=== PATIENT | female | born 1970 | race Caucasian/White ===

== ENCOUNTER 2022-11-25 14:08 | Emergency (ER) | payer OTHER, SELFPAY ==
--- NOTE | ~2022-11-25 | CT_ITS ---
EXAMINATION: CT HEAD AND FACIAL BONES WITHOUT CONTRAST CLINICAL INFORMATION: Pain COMPARISON: CT head from 07/21/2007 TECHNIQUE: Contiguous axial imaging was performed from the skull base to vertex without intravenous administration of contrast. This CT examination was performed using dose optimization techniques as appropriate, variously including the following: *Automated exposure control *Adjustment of mA and/or kV according to patient size (this includes techniques or standardized protocols for targeted exams where dose is matched to indication/reason for exam; i.e. extremities or head) *Use of iterative reconstruction technique DLP: 1019 mGy-cm FINDINGS: There is no evidence of acute intracranial hemorrhage or territorial infarction. No abnormal mass effect or midline shift is seen. Meza to white matter differentiation is well preserved. No extra-axial fluid collections are identified. The ventricles are normal in size. There is no abnormal attenuation within the brain parenchyma. The osseous structures and soft tissues are normal. The mastoid air cells and visualized portions of the paranasal sinuses are well aerated. CT/CT head/brain wo IV con IMPRESSION: 1. No acute intracranial pathology. 2. No acute visible fracture or dislocation.
--- NOTE | ~2022-11-25 | CT_ITS ---
EXAMINATION: CT HEAD AND FACIAL BONES WITHOUT CONTRAST CLINICAL INFORMATION: Pain COMPARISON: CT head from 07/21/2007 TECHNIQUE: Contiguous axial imaging was performed from the skull base to vertex without intravenous administration of contrast. This CT examination was performed using dose optimization techniques as appropriate, variously including the following: *Automated exposure control *Adjustment of mA and/or kV according to patient size (this includes techniques or standardized protocols for targeted exams where dose is matched to indication/reason for exam; i.e. extremities or head) *Use of iterative reconstruction technique DLP: 1019 mGy-cm FINDINGS: There is no evidence of acute intracranial hemorrhage or territorial infarction. No abnormal mass effect or midline shift is seen. Meza to white matter differentiation is well preserved. No extra-axial fluid collections are identified. The ventricles are normal in size. There is no abnormal attenuation within the brain parenchyma. The osseous structures and soft tissues are normal. The mastoid air cells and visualized portions of the paranasal sinuses are well aerated. CT/CT facial bones wo IV con IMPRESSION: 1. No acute intracranial pathology. 2. No acute visible fracture or dislocation.
[2022-11-25 14:12] VITALS: BP 190/118; PULSE 85; RESP 18; TEMP 36.7; O2SAT 99; BMI 31.0
--- NOTE | 2022-11-25 14:13 | ED_ITS ---
HPI - General Adult General Chief complaint: Fall Stated complaint: fall / tooth broke through skin Time Seen by Provider: 11/25/22 14:52 Source: patient Mode of arrival: ambulatory Limitations: no limitations History of Present Illness HPI narrative: 52 year old female with history of hypertension, thyroid cancer, among others, presents to ER after fall that happened around 12:00 today, 11/25. Reports she was bringing in groceries when she tripped and fell and hit her face against the pavement. States that her two superior frontal incisors penetrated into bottom lip during fall, but she did not break skin on the outer side of the lip. Denies loss of consciousness. Reports pain in her lips and numbness to abrasion involving skin above upper lip and tip of nose. Reports pain in her jaw when opening her mouth. Reports she took 2 tablets of ibuprofen before arriving to the hospital. Reported headache and blurry vision that resolved and denies any confusion or dizziness. Denies nausea, vomiting, epistaxis. MD complaint: facial trauma s/p fall Onset (ago): hour(s) Location: face Radiation: non-radiation Severity: moderate Quality: aching Pain Consistency: other (improving) Relieving factors: none Exacerbating factors: none Associated symptoms: denies other symptoms Treatments prior to arrival: NSAID Related Data Allergies Allergy/AdvReac Type Severity Reaction Status Date / Time No Known Allergies Allergy Verified 11/25/22 14:17 Review of Systems Review of Systems: Yes all other systems are reviewed and are negative [facility] Social History Social History Advance Directives: No Physical Exam ED Vital Signs: Vital Signs - 24 hr 11/25/22 14:12 11/25/22 16:00 11/25/22 17:48 Temperature 98.1 F 96.8 F Pulse Rate 85 68 57 Respiratory Rate 18 18 Blood Pressure 190/118 H 191/103 H 212/110 H Pulse Oximetry 99 98 Oxygen Delivery Method Room Air Room Air BMI result Body Mass Index 31.0 Const General: cooperative, comfortable and no acute distress Orientation/consciousness: patient oriented x3 HENMT Head: Yes normal to inspection, Yes normocephalic and No Vernon's sign Ears: hearing grossly normal bilaterally, external ears normal and TM's normal bilaterally General nose exam: Normal external nose present, Normal nares present, No nasal discharge present and no epistaxis Face and sinus: Yes abrasion (Superficial abrasion to philtrum, bleeding controlled. ) and Yes erythema Mouth: tongue normal, lip abnormal and mouth trauma (5 mm laceration along mucosa of inferior lip. Superior incisors chipped.) Neuro General: patient oriented x3 Course Course Course Narrative: This is an RME: Additional HPI, ROS, PE not included below will be deferred to primary provider. This is a [id number]-female presenting to the emergency department after mechanical fall. Patient reports that she tripped and fell directly on her face. Early tooth lacerated the in her bottom lip. She does have tenderness palpation along maxilla. Endorsing headache. No loss of consciousness. She is not on blood thinners Plan: CT head, CT facial bones Medications Administered Discontinued Medications Generic Name Dose Route Start Last Admin Trade Name Naresh PRN Reason Stop Dose Admin Bacitracin 1 appl 11/25/22 15:21 11/25/22 16:20 Bacitracin Oint 0.9 Gm Packet TOPICAL 11/25/22 15:22 1 appl ONCE ONE Administration Protocol Lidocaine HCl 2 ml 11/25/22 15:59 11/25/22 17:05 Lidocaine Hcl 1 % 20 Ml Vial INFILTRATI 11/25/22 16:00 2 ml ONCE ONE Administration Lisinopril 10 mg 11/25/22 16:40 11/25/22 17:11 Lisinopril 10 Mg Tablet PO 11/25/22 16:41 10 mg ONCE ONE Administration Protocol Procedures Laceration Laceration 2: Site: lip Size (cm): 1 Description: linear Depth: simple, single layer Local Anesthetic: lidocaine 1% Amount of anesthesia used (mL): 0.5 Pre-repair: wound explored and deep structures intact Skin layer closed with: other (absorbable) Size (cm): 5-0 Number of sutures: 2 Medical Decision Making Medical Decision Making MDM Narrative: 52 year old female with history of hypertension, thyroid cancer, among others, who presents to ER after fall today where she sustained abrasions to face. CT of head and CT of facial bones were within normal limits. Physical exam reveals laceration in inferior inner lip that is deep, involving subcutaneous fat. Bleeding is controlled. Used 0.5 mL xylocaine and 2 absorbable Vicryl sutures to close wound to inner lip. Advised patient that this area of the body heals quickly, and to avoid sharp textured food while the laceration resolves. patient very hypertensive on arrival to the ER. She did not take her lisinopril yet today. She has no chest pain or dizziness. She was given her lisinopril with small improvement in her blood pressure. She would like to be discharged home. She will follow-up with her primary care doctor. Low suspicion for hypertensive emergency at this time. comfortable w/ discharge home. Differential Diagnosis Differential Diagnoses: The differential diagnosis associated with the presentation includes Lip laceration, TMJ dislocation, maxilla fracture, mandibular fracture, concussion. Admission/Observation Consideration of admission/observation: Escalation of care including admission/observation considered facial trauma considered further monitoring/obs Independent Interpretation I performed an independent interpretation of an: CT Scan Interpretation: I have reviewed the patient's CT scans and agree with the radiologist's readings. no acute fx or brain edema or bleed Radiology Impression Discussion of test interpretation with radiology: I have reviewed the radiologist's reading. Radiologist Impression: EXAMINATION: CT HEAD AND FACIAL BONES WITHOUT CONTRAST CLINICAL INFORMATION: Pain? COMPARISON: CT head from 07/21/2007 TECHNIQUE: Contiguous axial imaging was performed from the skull base to vertex without intravenous administration of contrast. This CT examination was performed using dose optimization techniques as appropriate, variously including the following: *Automated exposure control *Adjustment of mA and/or kV according to patient size (this includes techniques or standardized protocols for targeted exams where dose is matched to indication/reason for exam; i.e. extremities or head) *Use of iterative reconstruction technique DLP: 1019 mGy-cm FINDINGS: There is no evidence of acute intracranial hemorrhage or territorial infarction. No abnormal mass effect or midline shift is seen. Meza to white matter differentiation is well preserved. No extra-axial fluid collections are identified. The ventricles are normal in size. There is no abnormal attenuation within the brain parenchyma. The osseous structures and soft tissues are normal. The mastoid air cells and visualized portions of the paranasal sinuses are well aerated. ? CT/CT head/brain wo IV con IMPRESSION: 1.? No acute intracranial pathology. 2.? No acute visible fracture or dislocation. EXAMINATION: CT HEAD AND FACIAL BONES WITHOUT CONTRAST CLINICAL INFORMATION: Pain? COMPARISON: CT head from 07/21/2007 TECHNIQUE: Contiguous axial imaging was performed from the skull base to vertex without intravenous administration of contrast. This CT examination was performed using dose optimization techniques as appropriate, variously including the following: *Automated exposure control *Adjustment of mA and/or kV according to patient size (this includes techniques or standardized protocols for targeted exams where dose is matched to indication/reason for exam; i.e. extremities or head) *Use of iterative reconstruction technique DLP: 1019 mGy-cm FINDINGS: There is no evidence of acute intracranial hemorrhage or territorial infarction. No abnormal mass effect or midline shift is seen. Meza to white matter differentiation is well preserved. No extra-axial fluid collections are identified. The ventricles are normal in size. There is no abnormal attenuation within the brain parenchyma. The osseous structures and soft tissues are normal. The mastoid air cells and visualized portions of the paranasal sinuses are well aerated. ? CT/CT facial bones wo IV con IMPRESSION: 1.? No acute intracranial pathology. 2.? No acute visible fracture or dislocation. Prescription Management I considered prescription management with: Pain Medication Chronic Conditions Patient?s care impacted by: Hypertension Discharge Plan Discharge Clinical Impression: Laceration of lip, Superficial abrasion Patient Disposition: Home, Self-Care Instructions: Facial Laceration (ED) Additional Instructions: Your CT scans were normal. 2 absorbable sutures were used to close the wound on your bottom lip. They will absorb on their own, no need to come back to get them out. Avoid foods that are sharp and rinse your mouth after your eat Use warm salt water washes 2-3 times per day Use bacitrcain or neosporin to the abrasion on your upper lip Apply ice several times per day to help with pain and swelling. Follow up with your doctor as needed If you develop new or worsening symptoms call 911 or come back to the ER for further evaluation.
[2022-11-25 16:00] VITALS: BP 191/103; PULSE 68; RESP 18; TEMP 36
[2022-11-25] MEDS: Bacitracin Oint 0.9 GM PACKET 1 APPL TOPICAL (16:20)
[2022-11-25] MEDS: Lidocaine HCl 1 % 20 ML VIAL INFILTRATI (17:05)
[2022-11-25] MEDS: lisinopriL 10 MG TABLET PO (17:11)
[2022-11-25 17:48] VITALS: BP 212/110; PULSE 57; O2SAT 98
[2022-11-25 17:55] VITALS: BP 180/85
--- NOTE | 2022-11-25 17:56 | PC.NURSE ---
blood pressure rechecked manually 180/105, lisinopril 10 mg administered previously . Pt stated that she takes lisinopril but didn't take at home today
== END 2022-11-25 18:01 | disposition home or self-care (01) ==
PROVIDERS: Emergency Provider Emergency Medicine
DX: S01.511A Laceration without foreign body of lip, initial encounter (principal); K03.81 Cracked tooth; R51.9 Headache, unspecified; X58.XXXA Exposure to other specified factors, initial encounter; Y93.9 Activity, unspecified; Y92.9 Unspecified place or not applicable; Y99.9 Unspecified external cause status
CPT/HCPCS: 12011; 70450; 70486; 99283; 99284

== ENCOUNTER 2023-01-24 14:12 | Emergency (ER) | payer OTHER, SELFPAY ==
--- NOTE | 2023-01-24 14:15 | ED.GENADULT ---
HPI - General Adult General Chief complaint: ETOH/Substance Use Stated complaint: SUBSTANCE ABUSE Time Seen by Provider: 01/24/23 14:15 Source: patient and EMS Mode of arrival: EMS Limitations: no limitations History of Present Illness HPI narrative: Patient is a 52 year old assigned female at with a history of crack cocaine use (10 years sober) presenting to the emergency department today with hallucination after breaking her 10 year sobriety and using $1,000 worth of crack cocaine over the last 3 days. Patient states that she has been stressed out lately and unfortunately, that lead her to buying $1,000 of crack cocaine and binging over the last 3 days. Patient denies any dizziness, lightheadedness, abdominal pain, nausea, vomiting, fever, chills, blurry vision, double vision, loss of vision, chest pain, difficulty breathing, shortness of breath, back pain, night sweats, pain with urination, increased urinary frequency, increased urinary urgency, blood in her urine or stool, syncope or a near syncopal episode, recent trauma or falls, bowel incontinence, bladder incontinence, bowel retention, bladder retention, or any other complaints at this time. Onset (ago): day(s) Relieving factors: none Exacerbating factors: none Associated symptoms: denies other symptoms Treatments prior to arrival: none Related Data Previous Rx's Medication Instructions Recorded cefuroxime axetil 250 mg tablet 250 mg PO BID 7 days #14 tabs 01/24/23 Allergies Allergy/AdvReac Type Severity Reaction Status Date / Time No Known Allergies Allergy Verified 11/25/22 14:17 Review of Systems Constitutional: Constitutional: Reports no additional constitutional complaints, Denies chills, Denies fever(s) and Denies night sweats Eyes: Eyes: Reports no additional eye complaints, Denies blurry vision, Denies change in vision, Denies diplopia, Denies eye discharge, Denies loss of vision and Denies eye pain ENT: Denies dizziness Cardiovascular: Cardiovascular: Reports no additional cardiovascular complaints, Denies chest pain, Denies lightheadedness, Denies Loss of Consciousness and Denies dyspnea Respiratory: Respiratory: Reports no additional respiratory complaints and Denies dyspnea Gastrointestinal: Gastrointestinal: Reports no additional gastrointestinal complaints, Denies abdominal pain, Denies melena, Denies hematochezia, Denies change in bowel habits and Denies change in stool character Genitourinary: Genitourinary: Denies hematuria, Denies urinary frequency, Denies dysuria, Denies urinary incontinence, Denies urinary hesitancy and Denies urinary urgency Musculoskeletal: Musculoskeletal: Reports no additional musculoskeletal complaints, Denies numbness and Denies tingling Neurologic: Denies dizziness, Denies loss of vision, Denies numbness and Denies tingling Psychiatric: Psychiatric: Reports auditory hallucinations, Reports visual hallucinations and Reports hallucinations Endocrine: Endocrine: Reports no additional endocrine complaints Hematologic/Lymphatic: Hematologic/Lymphatic: Reports no additional hematologic/lymphatic complaints Allergic/Immunologic: Allergic/Immunologic: Reports no additional allergic/immunologic complaints [facility] Past Medical History Attestation statement: The following information was validated with the patient. Source: old records reviewed and nursing notes reviewed Social History Social History Advance Directives: No Advance Directives Information Provided: Yes Physical Exam ED Vital Signs: Vital Signs - 24 hr 01/24/23 14:20 01/24/23 15:22 Temperature 98 F 97.6 F Pulse Rate 106 H 72 Respiratory Rate 18 16 Blood Pressure 149/88 H 142/82 H Pulse Oximetry 96 98 Oxygen Delivery Method Room Air Room Air BMI result Body Mass Index 32.9 Const General: cooperative, no acute distress, alert and awake Nutritional Appearance: well nourished Orientation/consciousness: patient oriented x3 Limitations: no limitations HENMT Head: Yes normal to inspection and Yes atraumatic Ears: hearing grossly normal bilaterally and external ears normal General nose exam: Normal external nose present, no nasal discharge noted and no epistaxis Face and sinus: Yes normal facial exam, No abrasion and No laceration Mouth: Normal oral and palatal mucosa present, no drooling and no muffled voice Eyes General: appearance normal, both eyes and all related structures Periorbital: periorbital findings normal Eyelids: Yes eyelids normal Conjunctivae: conjunctivae normal Pupils: Equal, round and reactive pupils present EOM: EOMs intact bilaterally Neck Neck: Yes normal visual inspection, Yes full ROM and Yes no lymphadenopathy Chest Chest palpation & inspection: normal inspection of the chest Resp Effort & Inspection: normal respiratory effort and able to speak in complete sentences GI Inspection: Yes normal to inspection Neuro General: patient oriented x3 and moves all extremities Cranial nerves: Yes Equal, round and reactive pupils present Cognition (Neuro): normal cognition Motor exam (neuro): 5/5 motor strength present throughout Sensory Exam: Normal double simultaneous stimulation for sensation Coordination: [id number]-[id number] test normal Extrem General: Yes normal to inspection, Yes full ROM and Yes capillary refill normal Psych Appearance: grossly normal Mental Status: mental status grossly normal Affect: normal affect Attitude: cooperative Thought process: Normal thought process present Thought content: Normal thought content present Insight: Good insight present (Psych) Medical Decision Making Medical Decision Making [facility] Narrative: Patient is a 52 year old assigned female at with a history of crack cocaine use presenting to the emergency department today with relapse and hallucinations. Patient's physical exam was unremarkable. Patient's blood work was unremarkable. Patient's urine showed an acute infection. Patient's EKG was unremarkable. I explained my physical exam findings as well as all test results to the patient. I answered all questions asked by the patient. Patient given first dose of PO antibiotcs. Patient is awaiting CARE and addiction team consultation. Differential Diagnosis Differential Diagnoses: The differential diagnosis associated with the presentation includes Crack use Hallucinations Lab Data [facility] Lab Attestation statement: I reviewed the patient's lab results. My interpretation of these results are in the MDM Rationale portion of this note. 01/24/23 14:58 01/24/23 14:58 Labs: Lab Results 01/24/23 01/24/23 Range/Units 14:46 14:58 WBC 8.8 (4.8-10.8) X10*3/uL RBC 4.71 (4.20-5.50) X10*6/uL Hgb 13.1 (12.0-16.0) g/dl Hct 39.7 (37.0-47.0) % MCV 84.3 (80.0-98.0) fL MCH 27.8 (27.0-33.0) pg MCHC 33.0 (31.0-35.0) g/dl RDW 13.8 (11.0-16.0) % Plt Count 306 (160-400) X10*3/uL MPV 9.3 L (9.4-12.3) fL Immature Gran % (Auto) 0.2 (0.0-0.4) % Neut % (Auto) 71.5 (45-73) % Lymph % (Auto) 19.1 L (20-40) % Milam % (Auto) 8.4 (2-11) % Eos % (Auto) 0.5 (0-4) % Baso % (Auto) 0.3 (0-2) % Lymph # (Auto) 1.7 (1.2-4.9) X10*3/uL Milam # (Auto) 0.7 (0.1-1.2) X10*3/uL Eos # (Auto) 0.0 (0.0-0.4) X10*3/uL Baso # (Auto) 0.0 (0.0-0.2) X10*3/uL Abs Immat Gran (auto) 0.02 (0.00-0.03) X10*3/uL Absolute Neuts (auto) 6.3 (2.0-8.3) x10*3/uL Absolute Nucleated RBC 0.000 (0.0-0.012) X10*3/uL Nucleated RBC % (auto) 0.0 (0.0-0.2) /100WBC Urine Color Yellow Urine Appearance Hazy Urine pH 6.0 (5.0-9.0) Ur Specific [place] >= 1.030 H (1.005-1.025) Urine Protein 100 (2+) H (Neg-Trace) mg/dL Urine Glucose (UA) Negative (Negative) mg/dL Urine Ketones 40 (Negative) mg/dL Urine Blood Trace (Negative) Urine Nitrite Negative (Negative) Ur Leukocyte Esterase Negative (Negative) Urine RBC 3-5 H (0-2) /HPF Urine WBC 11-20 H (0-5) /HPF Ur Squamous Epith Cells 6-10 (0-2) /HPF Urine Bacteria 4+ (None Seen) Hyaline Casts >20 (0-2) /LPF Urine Opiates Screen Not Detected (Not Detect) Urine Fentanyl Screen Not Detected (Not Detect) Ur Barbiturates Screen Not Detected (Not Detect) Ur Phencyclidine Scrn Not Detected (Not Detect) Ur Amphetamines Screen Not Detected (Not Detect) U Benzodiazepines Scrn Not Detected (Not Detect) Urine Cocaine Screen POSITIVE H (Not Detect) U Marijuana (THC) Screen Not Detected (Not Detect) Independent Interpretation I performed an independent interpretation of an: EKG Interpretation: Vent. Rate: 093 BPM Atrial Rate: 093 BPM P-R Int: 146 ms QRS Dur: 086 ms QT Int: 396 ms P-R-T Axes: 039 009 022 degrees QTc Int: 492 ms Normal sinus rhythm Moderate voltage criteria for LVH, may be normal variant ( R in aVL , Abdelrahman product ) Prolonged QT Abnormal ECG No previous ECGs available DD/ 1452 Independent Historian Clinical information obtained from an independent historian. History obtained from or confirmed by: EMS (EMS provided additional history and confirmed the history provided by the patient. ) Discharge Plan Discharge Clinical Impression: Crack cocaine use, UTI (urinary tract infection) Patient Disposition: Still a Patient Prescriptions: New cefuroxime axetil 250 mg tablet 250 mg PO BID 7 Days Qty: 14 0RF
[2023-01-24 14:17] VITALS: BP 162/88; PULSE 112; O2SAT 97
[2023-01-24 14:20] VITALS: BP 149/88; PULSE 106; RESP 18; TEMP 36.6; O2SAT 96; BMI 32.9
--- NOTE | 2023-01-24 14:23 | ECG_ITS ---
Test Reason : MEDICAL CLEARANCE/CRACK USAGE Blood Pressure : / mmHG Vent. Rate : 093 BPM Atrial Rate : 093 BPM P-R Int : 146 ms QRS Dur : 086 ms QT Int : 396 ms P-R-T Axes : 039 009 022 degrees QTc Int : 492 ms Normal sinus rhythm Moderate voltage criteria for LVH, may be normal variant ( R in aVL , Abdelrahman product ) Abnormal ECG No previous ECGs available Referred By: Yu Wiley Electronically Signed By:OSVALDO ELMORE MD
[2023-01-24 14:52] LABS: Appearance Urine Hazy; Color Urine Yellow; Glucose Urine UA Negative (Negative); Leukocyte Esterase Urine Negative (Negative); Nitrite Urine Negative (Negative); Specific Gravity - Urine >= 1.030 (1.005-1.025); UMIC TRIGGER UA YES; Urine Blood Trace (Negative); Urine Ketones 40 mg/dL (Negative); Urine Protein 100 (2+) mg/dL (Neg-Trace)
[2023-01-24 15:01] LABS: Amphetamine Screen Urine Not Detected (Not Detect); Barbiturates, Urine Not Detected (Not Detect); Benzodiazepines Screen Urine Not Detected (Not Detect); Cannabinoid Screen Urine Not Detected (Not Detect); Cocaine Screen Urine POSITIVE (Not Detect); Fentanyl, urine Not Detected (Not Detect); Opiate Screen Urine Not Detected (Not Detect); Phencyclidine Screen Urine Not Detected (Not Detect)
[2023-01-24 15:03] LABS: MANUAL DIFF FLAG NO
[2023-01-24 15:03] LABS: Bacteria Urine 4+ (None Seen); Hyaline Casts Urine >20 /LPF (0-2)
[2023-01-24 15:04] LABS: Basophils Percent Auto 0.3 % (0-2); Eosinophils Percent Auto 0.5 % (0-4); Hematocrit 39.7 % (37.0-47.0); Hemoglobin 13.1 g/dl (12.0-16.0); Imm Gran Abs Auto 0.02 X10*3/uL (0.00-0.03); Imm Gran Pct Auto 0.2 % (0.0-0.4); Lymphocytes Absolute Auto 1.7 X10*3/uL (1.2-4.9); Lymphocytes Percent Auto 19.1 % (20-40); Mean Corpuscular Hemoglobin 27.8 pg (27.0-33.0); Mean Corpuscular Volume 84.3 fL (80.0-98.0); Mean Platelet Volume 9.3 fL (9.4-12.3); Monocytes Absolute Auto 0.7 X10*3/uL (0.1-1.2); Monocytes Percent Auto 8.4 % (2-11); Neutrophils Absolute Auto 6.3 x10*3/uL (2.0-8.3); Neutrophils Percent Auto 71.5 % (45-73); Platelet Count 306 X10*3/uL (160-400); Red Blood Count 4.71 X10*6/uL (4.20-5.50); Red Cell Distribution Width 13.8 % (11.0-16.0); White Blood Count 8.8 X10*3/uL (4.8-10.8)
[2023-01-24 15:22] VITALS: BP 142/82; PULSE 72; RESP 16; TEMP 36.4; O2SAT 98
[2023-01-24 15:37] LABS: Alanine Aminotransferase 36 U/L (0-31); Albumin Level 4.3 g/dL (3.5-5.0); Alkaline Phosphatase 80 U/L (39-117); Anion Gap 22 (12-20); Aspartate Amino Transferase 62 U/L (5-31); Bilirubin Total 0.6 mg/dL (0.0-1.0); Blood Urea Nitrogen 49 mg/dL (9-16); Carbon Dioxide 19 mmol/L (22-29); Chloride 102 mmol/L (96-108); Creatinine Clr Calc Pharmacy 61.5; Estimated Glomerular Filt Rate 44; Ethanol < 10 mg/dL; Glucose Random 121 mg/dL (60-115); Potassium 3.8 mmol/L (3.3-5.1); Sodium 139 mmol/L (135-145)
--- NOTE | 2023-01-24 15:53 | MHC.RECOVRN ---
Met with pt in [id number] after pt presented with VH after recurrence with cocaine (INH). Pt sitting in bed, awake, alert, tearful. Pt reports recurrence after 10 years in recovery. Since Monday has used $1000 cocaine (INH) as well as at least 20 nips, 1 pint vodka, and beer. Pt reports anniversary of 's , among other stressors, triggered recurrence. Pt reports she had maintained recovery utilizing NA. Pt reports seeing bugs in her hair, on the floor, and on blanket. Pt currently aware these are VH. Pt reports lack of support, It's only me and my son (19 yo). Pt reports everyone in the family has . Pt began seeing a therapist one month ago at [facility] in [place], is finding this helpful at times. Discussed other recovery supports and resources, pt is interested in medications for AUD as well as stimulant use disorder. Educated pt on CCC, appt made for 01/27 at 1:30PM. Provided pt with written resources as well as t/w contact information, declines other referrals at this time. Pt denies other questions or concerns.
[2023-01-24] MEDS: LORazepam 1 MG TABLET PO (16:13)
[2023-01-24] MEDS: cefuroxime axetiL 250 MG TABLET PO (16:13)
[2023-01-24 16:39] LABS: Acetaminophen LAB < 17 mcg/mL (<30); Salicylate < 5.0 mg/dL (15-30)
[2023-01-24 18:18] VITALS: BP 143/80; PULSE 67; RESP 16; TEMP 36.8; O2SAT 98
== END 2023-01-24 19:48 | disposition home or self-care (01) ==
PROVIDERS: Physician Assistant Medical; Emergency Provider Emergency Medicine
DX: F14.151 Cocaine abuse with cocaine-induced psychotic disorder with hallucinations (principal); N39.0 Urinary tract infection, site not specified
CPT/HCPCS: 80053; 80143; 80179; 80307; 81001; 85025; 93005; 99284; S9485

== ENCOUNTER 2023-10-07 08:36 | Emergency (ER) | payer OTHER, SELFPAY ==
--- NOTE | ~2023-10-07 | XR_ITS ---
Exam: X-ray knee and tibia and fibula, right CLINICAL INFORMATION: Pain status post fall 2 weeks ago. COMPARISON: None TECHNIQUE: 2 views of the left knee and 2 views of the left tibia and fibula. FINDINGS: The left knee prosthesis appears intact. Status post ORIF of the distal femur with plate and screw fixation. Small suprapatellar joint effusion. There is a comminuted, mildly displaced and angulated fracture in the proximal fibula. The distal tibia and fibula appear intact as does the syndesmosis and ankle joint. Small plantar calcaneal spur and Achilles enthesophyte. XR/XR tibia fibula RT 2V IMPRESSION: 1. Comminuted, mildly displaced and angulated fracture in the proximal fibula. 2. The left knee prosthesis appears intact. 3. Small suprapatellar joint effusion.
--- NOTE | ~2023-10-07 | XR_ITS ---
Exam: X-ray knee and tibia and fibula, right CLINICAL INFORMATION: Pain status post fall 2 weeks ago. COMPARISON: None TECHNIQUE: 2 views of the left knee and 2 views of the left tibia and fibula. FINDINGS: The left knee prosthesis appears intact. Status post ORIF of the distal femur with plate and screw fixation. Small suprapatellar joint effusion. There is a comminuted, mildly displaced and angulated fracture in the proximal fibula. The distal tibia and fibula appear intact as does the syndesmosis and ankle joint. Small plantar calcaneal spur and Achilles enthesophyte. XR/XR knee RT 2V IMPRESSION: 1. Comminuted, mildly displaced and angulated fracture in the proximal fibula. 2. The left knee prosthesis appears intact. 3. Small suprapatellar joint effusion.
[2023-10-07 08:41] VITALS: BP 124/80; PULSE 85; RESP 16; TEMP 36; O2SAT 97; BMI 41.9
--- NOTE | 2023-10-07 09:07 | ED.GENADULT ---
HPI - General Adult General Chief complaint: Extremity Injury, Lower Stated complaint: rt fx femur/fall 2 weeks ago Time Seen by Provider: 10/07/23 09:02 Source: patient Mode of arrival: ambulatory Limitations: no limitations History of Present Illness ED Provider: Tc ZAMUDIO HPI narrative: 52-year-old female history of crack cocaine abuse presents status post fall 2 weeks ago with right lower extremity pain, patient was seen by her PCP for this pain, the ordered outpatient x-rays and she was told to come into the emergency department immediately. She reports when she fell she did not hit her head, no loss of consciousness. She reports right after the fall she experienced the right lower extremity pain and has been worsening ever since then she reports she has been ambulatory since the fall with discomfort and limping favoring her left side. She has a knee replacement to right knee. She reports that pain is improved with an Michele wrap worse without it. She has been taking p.o. pain meds percocet that were prescribed by her provider who ordered the x-ray with little to no relief. She is scheduled to see the orthopedic team on Monday. She denies associated numbness, tingling, headache, vision changes, dizziness or weakness. Related Data Previous Rx's ?Medication ?Instructions ?Recorded cefuroxime axetil 250 mg tablet 250 mg PO BID 7 days #14 tabs 01/24/23 Allergies Allergy/AdvReac Type Severity Reaction Status Date / Time No Known Allergies Allergy Verified 10/07/23 08:43 Review of Systems Review of Systems: Yes all other systems are reviewed and are negative PMFSH Past Medical History Attestation statement: The following information was validated with the patient. Source: old records reviewed and nursing notes reviewed Social History Social History Advance Directives: No Physical Exam ED Vital Signs: Vital Signs - 24 hr 10/07/23 08:41 Temperature 96.8 F Pulse Rate 85 Respiratory Rate 16 Blood Pressure 124/80 Pulse Oximetry 97 Oxygen Delivery Method Room Air BMI result Body Mass Index 41.9 vss Appearance: Alert.? Oriented X3.? No acute distress.? Head: Normocephalic, atraumatic, no step-offs or deformities Eyes: Pupils equal, round and reactive to light.? CVS: Normal heart rate and rhythm.? Pulses normal.? Respiratory: No respiratory distress.? Breath sounds normal.? Abdomen: Soft and nontender.? Skin: Skin warm and dry.? Normal skin color.? Normal skin turgor.? Extremities: No lower extremity edema.? No calf ttp. 5/5 strength to bilateral upper and lower extremities + TTP to the RLE 4 cm below the knee on the lateral side. 2+ DP,AT,PT, popliteal pulses equal and b/l. Normal distal sensation. AMbulatory w/ discomfort to RLE Neuro: Oriented X 3.? No motor deficit.? No sensory deficit. CN 2-12 intact Course Reevaluation(s) Reevaluation #1: X-ray of right tibia fibula with comminuted mildly displaced and angulated fracture in the proximal fibula. The left knee prosthesis appears intact. Small suprapatellar joint effusion. Discussed this case with Orthopedics Kenroy Blackwood who recommends weight-bearing as tolerated. With a walking boot. And to follow-up with [facility]. Patient has Percocet at home for pain. Educated patient on diagnosis and treatment plan, answered all question, patient verbalizes understanding. At this time patient will be discharged home, advised to return with new or worsening symptoms. Educated on worrisome signs and symptoms and when to return. At this time I feel comfortable discharge home. Time: 10:15 Medical Decision Making Medical Decision Making MDM Narrative: 52 yo f prsents s/p fall 2 weeks ago w/ r knee/ lower extermity pain following. Patient told to come in today by PCP PE- TTP to the RLE 4 cm below the knee on the lateral side. 2+ DP,AT,PT, popliteal pulses equal and b/l. Normal distal sensation. AMbulatory w/ discomfort to RLE History and physical exam concerning for fracture and/or dislocation. Will rule out injury or trauma to knee replacement. Unlikely traumatic injury to head, neck, chest, abdomen or pelvis. No signs of neurovascular compromise or acute threat to limb. Plan- xray Differential Diagnosis Differential Diagnoses: The differential diagnosis associated with the presentation includes History and physical exam concerning for fracture and/or dislocation. Will rule out injury or trauma to knee replacement. Unlikely traumatic injury to head, neck, chest, abdomen or pelvis. No signs of neurovascular compromise or acute threat to limb. Admission/Observation Consideration of admission/observation: Escalation of care including admission/observation considered Unlikey Consult Healthcare Provider Management of the patient was discussed with: Hydrometer Finisher (Ortho ) Independent Interpretation I performed an independent interpretation of an: Plain X-Ray (XR/XR tibia fibula RT 2V IMPRESSION: 1. Comminuted, mildly displaced and angulated fracture in the proximal fibula. 2. The left knee prosthesis appears intact. 3. Small suprapatellar joint effusion.) Radiology Impression Discussion of test interpretation with radiology: I have reviewed the radiologist's reading. External Record Review External record reviewed: Outpatient record Tests considered The following testing was considered but not selected: No signs of trauma to head, neck, chest, abdomen and pelvis. Therefore no indication for imaging Prescription Management I considered prescription management with: Pain Medication (patient on pain meds ) Chronic Conditions Patient?s care impacted by: Other (crack cocaine abuse ) Critical Care Time Critical Care Time Critical Care Time: No Discharge Plan Discharge Clinical Impression: Fibula fracture, Fall Patient Disposition: Still a Patient Instructions: Leg Fracture (ED), Crutch Instructions (ED), R.I.C.E. Treatment (ED), Fall Prevention (ED) Additional Instructions: Take your medications as prescribed. If you were prescribed antibiotics today, it is important that you take your medication to their entirety, do not skip any doses, do not finish them early. Follow-up with your primary care provider this week. Return to the emergency department with new or worsening symptoms. Such as fevers, chills, chest pain, shortness of breath, nausea, vomiting, dizziness, headache, vision changes, lethargy In case of emergency call 911 Wear your walking boot as instructed use crutches as instructed. You can weight bear as tolerated. Please follow-up with [facility]. Continue taking your Percocet.: Do not take more than the prescribed dose. Narcotic medications can cause addiction. Please do not mix them with alcohol. Do not take them while driving or operating machinery. Do not take them with any other narcotics. Do not share them with friends or family. They can cause constipation. Take them only for severe pain. Prescriptions: No Action cefuroxime axetil 250 mg tablet 250 mg PO BID 7 Days Qty: 14 0RF [place] [facility] [place] [facility] [Provider Group] - 3 days Print Language: Uzbek
[2023-10-07 11:03] VITALS: BP 122/84; PULSE 72; RESP 18; TEMP 36.6; O2SAT 97
== END 2023-10-07 11:04 | disposition still patient (30) ==
PROVIDERS: Emergency Provider Emergency Medicine Emergency Medical Services; PCP Internal Medicine
DX: S82.451A Displaced comminuted fracture of shaft of right fibula, initial encounter for closed fracture (principal); W18.30XA Fall on same level, unspecified, initial encounter; M25.461 Effusion, right knee; Z96.651 Presence of right artificial knee joint; Y93.9 Activity, unspecified; Y92.9 Unspecified place or not applicable; Y99.9 Unspecified external cause status
CPT/HCPCS: 73560; 73590; 99283; 99284

== ENCOUNTER 2023-10-10 08:45 | Outpatient (REF) | payer OTHER, SELFPAY ==
--- NOTE | ~2023-10-10 | XR_ITS ---
EXAMINATION: XR TIBIA AND FIBULA, RIGHT CLINICAL INFORMATION: Pain. COMPARISON: X-ray 10/07/2023. TECHNIQUE: 3 views of the right tibia and fibula were obtained. FINDINGS: There is a comminuted, mildly displaced and angulated fracture of the proximal fibula, similar to previous. The distal tibia and fibula are intact. No new acute fractures. Status post ORIF of the distal femur with plate and screw fixation, partially imaged. The ankle joint articulation is intact. XR/XR tibia fibula RT 2V IMPRESSION: Stable position and alignment of a comminuted, mildly displaced proximal fibular fracture. Study is assigned for dictation on October.
== END 2023-10-10 08:46 | disposition home or self-care (01) ==
LOC: HO.HOSX 08:45
PROVIDERS: Visit Provider Physician Assistant
DX: S82.831A Other fracture of upper and lower end of right fibula, initial encounter for closed fracture (principal)
CPT/HCPCS: 73590; 99202

== ENCOUNTER 2023-10-10 11:12 | Outpatient (AMB) | payer OTHER, SELFPAY ==
--- NOTE | 2023-10-10 11:29 | A.OFFVIS_ITS ---
Intake Visit Reasons: FC-Fibula fracture, DOI 09/21/23 Intake Note: Estela is a 52 year old female who presents today for a evaluation of her right fibula fx, DOI 09/21/23. Patient reports she was taking out the trash and she missed step on lose concrete which she heard a loud pop and she feel. She states that she is in a lot of pain. Pain starts from her knee all the way down to her foot. Allergies No Known Allergies Allergy (Verified 10/10/23 11:33) Medication List - Last Reconciled 10/10/23 by Guerda Spivey PA-C cefuroxime axetil 250 mg PO BID 7 days gabapentin 100 mg PO DAILY hydrochlorothiazide 25 mg PO DAILY levothyroxine 25 mcg PO DAILY levothyroxine 200 mcg PO DAILY lisinopril 10 mg PO DAILY sertraline mg PO walker Use as directed for ambulation as needed HPI HPI FC-Fibula fracture, DOI 09/21/23: Details: 52-year-old female who presents to the office today for an evaluation of right fibula injury, 09/21/23. She reports she was taking out the trash and missed a step on loose concrete and she felt and heard a loud pop. She currently states she has a sharp pain in her knee that radiates down to her foot. [facility] Social History (Updated 10/10/23 @ 11:34 by Rosa Jones) Alcohol intake: current Alcohol intake frequency: holidays/special occasions only Patient Tobacco Use Status: Current everyday Tobacco user Cigarettes Per Day: 3 Current occupational status: unemployed Review of Systems Const All systems reviewed & are unremarkable except as noted in HPI and below Physical Exam Const General: cooperative, healthy appearing, comfortable, no acute distress, well developed and alert Orientation/consciousness: patient oriented x3 HEENT Head: Yes normal to inspection, Yes normocephalic and Yes atraumatic Eyes General: appearance normal, both eyes and all related structures Resp Effort & Inspection: normal respiratory effort and able to speak in complete sentences Cardio Rate: regular rate Peripheral pulses: Peripheral pulses 2+ throughout GI Palpation (GI): Soft to palpation Skin Lesions: no lesions Rashes: no rashes Neuro General: patient oriented x3 Extrem Other: RLE: Normal to inspection. Mild tenderness prox fibula no bony abnormalities. NVI. Office Procedures Fracture Care Fracture Billing Code: Fracture Billing Code Results Reviewed Results Reviewed: Xrays were obtained in the office today and personally reviewed by me of the right tib/fib show minimally displaced proximal fibula Assessment & Plan Assessment & Plan (1) Fracture of proximal end of right fibula: Code(s): S82.831A - Other fracture of upper and lower end of right fibula, initial encounter for closed fracture Category: Medical Plan She will continue with the tall boot weight bearing as tolerated. She will remove the boot for rest and hygiene. I did explain that this can take 6 weeks for a bony union and another 6 weeks for complete stability and strength. I would like to see her back in 6 weeks with x-rays, sooner if needed. Orders: Orders XR tibia fibula RT 2V Today R52 - Pain, unspecified Medications: New tramadol 50 mg PO BEDTIME 7 tabs 0RF 7 days Patient Instructions: Scribed for Guerda Spivey PA-C, by Devan Mancia medical social worker, on 10/10/2023 at 11:15 AM EST.? I, Guerda Spivey PA-C, have personally reviewed and agree with the information entered by the scribe. Coding Level of Care Code New Pt Level 3 (40244) Diagnoses Fracture of proximal end of right fibula S82.831A CPT Codes Fracture Care - Fracture Billing Code: Fracture Billing Code ([id number])
== END 2023-10-10 13:31 | disposition home or self-care (01) ==
PROVIDERS: PCP Internal Medicine; Visit Provider Physician Assistant
DX: S82.831A Other fracture of upper and lower end of right fibula, initial encounter for closed fracture (principal)
CPT/HCPCS: 99204

== ENCOUNTER 2023-11-22 11:56 | Outpatient (REF) | payer SELFPAY ==
--- NOTE | ~2023-11-22 | XR_ITS ---
EXAMINATION: XR TIBIA AND FIBULA, RIGHT CLINICAL INFORMATION: Pain, unspecified. COMPARISON: 10/07/2023 TECHNIQUE: AP and lateral views of the right tibia and fibula were obtained. FINDINGS: Prosthetic components at the right knee appear appropriately positioned, though are only partially imaged on this study. The oblique fracture of the right proximal fibular diaphysis is unchanged in alignment with new bridging callus formation and softening of the fracture margins, consistent with partial healing. No new fractures. No acute findings are identified at the right ankle. Small enthesopathic spurs are present at the Achilles tendon insertion and plantar fascial origin on the calcaneus. XR/XR tibia fibula RT 2V IMPRESSION: Partial healing of the right proximal fibular diaphyseal fracture. No new fractures. Electronically signed by: Bo Schrader MD 11/28/2023 02:05 PM EDT
== END 2023-11-22 11:57 | disposition home or self-care (01) ==
LOC: HO.XRAY 11:56
PROVIDERS: PCP Internal Medicine; Visit Provider Physician Assistant
DX: M79.661 Pain in right lower leg (principal)
CPT/HCPCS: 73590

== ENCOUNTER 2023-12-13 13:12 | Outpatient (REF) | payer OTHER, SELFPAY ==
--- NOTE | ~2023-12-13 | XR_ITS ---
EXAMINATION: XR TIBIA AND FIBULA, RIGHT CLINICAL INFORMATION: R52 - Pain, unspecified COMPARISON: 11/14/2023, 10/10/2023, 10/07/2023. TECHNIQUE: AP and lateral views of the right tibia and fibula were obtained. FINDINGS: Normal bony mineralization. No suspicious bony lesions. Redemonstration of oblique fracture of the proximal fibular metadiaphysis with mild comminution, in stable alignment without significant displacement. There is evidence of mild further interval healing at the fracture site. Stable and unchanged 4 mm anterior displacement of the distal fracture fragment. No angulation. Tibia appears intact. There is total right knee arthroplasty in place without complication observed. Mild degenerative changes in the right ankle joint. Small enthesopathic spurs are present at the Achilles tendon insertion and plantar fascial origin on the calcaneus. Normal soft tissues. XR/XR tibia fibula RT 2V IMPRESSION: Stable examination with redemonstration of unchanged alignment and partial healing of the right proximal fibular metadiaphyseal comminuted fracture. Electronically signed by: Bo Foster MD 02/21/2024 04:11 PM [facility] [place]
== END 2023-12-13 13:13 | disposition home or self-care (01) ==
LOC: HO.XRAY 13:12
PROVIDERS: PCP Internal Medicine; Visit Provider Physician Assistant
DX: S82.831D Other fracture of upper and lower end of right fibula, subsequent encounter for closed fracture with routine healing (principal)
CPT/HCPCS: 73590; 99212

== ENCOUNTER → 2023-12-13 13:17 | Outpatient (BNV) | payer OTHER, SELFPAY | PROVIDERS: PCP Internal Medicine; Visit Provider Radiology Diagnostic Radiology | DX: S82.451A Displaced comminuted fracture of shaft of right fibula, initial encounter for closed fracture (principal) | CPT/HCPCS: 73590 ==

== ENCOUNTER 2023-12-13 13:33 | Outpatient (AMB) | payer OTHER, SELFPAY ==
--- NOTE | 2023-12-13 14:09 | MHC.OFFVIS ---
Vital Signs 12/13/23 14:15 Height 5 ft 6 in Weight 259 lb BMI 41.8 Intake Visit Reasons: ov- right fibula fx, DOI 09/21/23 Intake Note: Estela a 53 year old female who presents today for a follow up of right fibula fracture, DOI 09/21/23. Patient reports ongoing pain, stating constant pain located at the lateral aspect and is now traveling to the posterior aspect of knee. States throbbing pain in her lower leg with standing/walking. She is requesting a refill on Tramadol due to her pain. Allergies No Known Allergies Allergy (Verified 12/13/23 14:10) Medication List - Last Reconciled 12/13/23 by Guerda Spivey PA-C cefuroxime axetil 250 mg PO BID 7 days gabapentin 100 mg PO DAILY hydrochlorothiazide 25 mg PO DAILY levothyroxine 25 mcg PO DAILY levothyroxine 200 mcg PO DAILY lisinopril 10 mg PO DAILY sertraline mg PO walker Use as directed for ambulation as needed HPI HPI ov- right fibula fx, DOI 09/21/23: Details: The patient is a 53-year-old female who returns to the office today for follow up of right fibula pain. She complains of having throbbing pain in the lower leg with standing and walking which is along the anterior portion of the leg along the muscle. [facility] Social History Alcohol intake: current Alcohol intake frequency: holidays/special occasions only Patient Tobacco Use Status: Current everyday Tobacco user Cigarettes Per Day: 3 Current occupational status: unemployed Review of Systems Const All systems reviewed & are unremarkable except as noted in HPI and below Physical Exam Vital Signs: BMI result Body Mass Index 41.8 Const General: cooperative, healthy appearing, comfortable, no acute distress, well developed and alert Orientation/consciousness: patient oriented x3 HEENT Head: Yes normal to inspection, Yes normocephalic and Yes atraumatic Eyes General: appearance normal, both eyes and all related structures Resp Effort & Inspection: normal respiratory effort and able to speak in complete sentences Cardio Rate: regular rate Peripheral pulses: Peripheral pulses 2+ throughout GI Palpation (GI): Soft to palpation Skin Lesions: no lesions Rashes: no rashes Neuro General: patient oriented x3 Extrem Other: RLE: Normal to inspection. No open wounds. Mild discomfort along the anterior tibialis. Tenderness along the distal locking screws of the retrograde nail in the femur. Full ROM of the knee. NVI. Results Reviewed Results Reviewed: Xrays were obtained today and personally reviewed by me of the right tib/fib show stable proximal fibula fx with callus formation. Intact TKA Assessment & Plan Assessment & Plan (1) Fracture of proximal end of right fibula: Code(s): S82.831A - Other fracture of upper and lower end of right fibula, initial encounter for closed fracture Category: Medical Qualifiers: Encounter type: subsequent encounter Fracture type: closed Fracture morphology: other fracture Fracture healing: with routine healing Qualified Code(s): S82.831D - Other fracture of upper and lower end of right fibula, subsequent encounter for closed fracture with routine healing Plan We are going to have her begin the course of physical therapy to work on posterior strengthening exercises. We discussed the hardware in her femur, if it becomes problematic, she will see us in the next 6 -8 weeks with new x-rays of right femur to further evaluate. She is content with the plan and will otherwise follow up as needed. Scribed for Guerda Spivey PA-C, by Xavier Michel biomedical field service engineer, on 12/13/2023 at 14:30 AM EST. IGuerda PA-C, have personally reviewed and agree with the information entered by the scribe. Orders: Orders XR tibia fibula RT 2V Today R52 - Pain, unspecified PT Evaluation and Treatment Today S82.831A - Other fracture of upper and lower end of right fibula, initial encounter for closed fracture XR tibia fibula RT 2V 12/08/23 R52 - Pain, unspecified Coding Level of Care Code Global (61142) Diagnoses Other closed fracture of proximal end of right fibula with routine healing, subsequent encounter S82.831D Encounter type: subsequent encounter Fracture type: closed Fracture morphology: other fracture Fracture healing: with routine healing
[2023-12-13 14:15] VITALS: BMI 41.8
== END 2023-12-13 20:57 | disposition home or self-care (01) ==
PROVIDERS: PCP Internal Medicine; Visit Provider Physician Assistant
DX: S82.831D Other fracture of upper and lower end of right fibula, subsequent encounter for closed fracture with routine healing (principal)
CPT/HCPCS: 99213